=== PATIENT | female | born 1995 | race American Indian/Alaskan Native ===

== ENCOUNTER 2017-01-20 14:53 | Emergency (ER) | payer SELFPAY ==
[~2017-01-20] VITALS: Ht 157.5 cm; Wt 84.0 kg
[2017-01-20] MEDS ORDERED: LIDOCAINE 2% 100MG/5ML SYRINGE ONE (15:44)
[2017-01-20] MEDS ORDERED: LIDOCAINE-MPF 2% ,5ML ONE ×2 (15:45→15:54)
[2017-01-20] MEDS ORDERED: DIPH,PERTUSS(ACELL),TET VAC/PF 0.5 ML IM-VACC ONE ×2 (15:47→16:00)
[2017-01-20] MEDS ORDERED: SODIUM CHLORIDE FLUSH 10ML SYR IVF ONE (16:00)
[2017-01-20] MEDS ORDERED: LIDOCAINE 2%, 20ML SQ ONE (16:00)
[2017-01-20] MEDS ORDERED: PLEASE ENTER ALLERGIES MC SCH ×2 (16:00)
[2017-01-20] MEDS ORDERED: AMPICILLIN/SULBACTAM 3 GM in SODIUM CHLORIDE 0.9% 100 ML IV ONE (16:00)
[2017-01-20] MEDS ORDERED: HYDROcodone/APAP 5/325 TABLET PO ONE (16:00)
[2017-01-20] MEDS ORDERED: OXYcodone/APAP 5/325MG TABLET ONE (16:14)
[2017-01-20] MEDS ORDERED: BACITRACIN ZINC OINT 500U/GM, 0.9 GM ONE (16:14)
[2017-01-20] MEDS ORDERED: HYDROcodone/APAP 5/325 TABLET ONE (16:20)
[2017-01-20 17:04] VITALS: BP 115/61
== END 2017-01-20 17:31 | disposition home or self-care (01) ==
LOC: ED 17:25
DX: S51.852A Open bite of left forearm, initial encounter (principal); W54.0XXA Bitten by dog, initial encounter; Y93.89 Activity, other specified; Y92.410 Unspecified street and highway as the place of occurrence of the external cause; Y99.8 Other external cause status
CPT/HCPCS: 12002; 90471; 90715; 96365; 99284; J0295